=== PATIENT | female | born 1985 | race American Indian/Alaskan Native ===

== ENCOUNTER 2018-08-05 22:30 | Emergency (ER) | payer MEDICAID ==
--- NOTE | 2018-08-05 22:45 | Emergency Department Report ---
Chief Complaint: Eye Problems Stated Complaint: EYE PAIN Time Seen by Provider: 08/05/18 22:44 - HPI History of Present Illness: eye irritation bilateral no life threat mse completed - Exam Vital Signs: Vital Signs 08/05/18 22:38 Temperature 97.8 F Pulse Rate 74 Respiratory 18 Rate Blood Pressure 107/67 O2 Sat by Pulse 94 Oximetry MSE screening note: Focused history and physical exam performed. Due to findings the following was ordered: ED Disposition for MSE Condition: Stable
[2018-08-05 22:57] VITALS: BP 107/67
[2018-08-06] MEDS ORDERED: AUGMENTIN 875 MG PO ONE (00:58)
[2018-08-06] MEDS ORDERED: NORCO 5/325 PO STA (00:58)
--- NOTE | 2018-08-06 01:11 | Emergency Department Report ---
ED Eye Problem HPI - General Chief complaint: Eye Problems Stated complaint: EYE PAIN Time Seen by Provider: 08/05/18 22:44 Source: patient Mode of arrival: Ambulatory Limitations: No Limitations - History of Present Illness Initial comments: 32-year-old [place] female to emergency Department complaining of severe eye pain and redness with discharge. It was preceded by sinus congestion and sinus pressure. He was having yellowish drainage from her eyes of some irritation with blinking. No nausea, vomiting, chest pain, palpitations, fever, chills, sweats. No hemoptysis, hematemesis, no hematochezia. chief complaint: eye pain, eye redness -: days(s) (2) Location: both eyes Place: home If Injury: none Eye Symptoms: redness, pain, itching, discharge Severity: moderate Consistency: constant Associated Symptoms: none Treatments Prior to Arrival: none - Related Data Previous Rx's Medication Instructions Recorded Last Taken Type Amoxicillin/Potassium Clav 1 each PO BID #20 tablet 08/06/18 Unknown Rx [Augmentin 875-125 Tablet] Tobramycin 0.3% [Tobrex] 1 applicatio OU Q8HR #1 tube 08/06/18 Unknown Rx Allergies Allergy/AdvReac Type Severity Reaction Status Date / Time No Known Allergies Allergy Verified 08/05/18 22:36 ED Review of Systems ROS: Stated complaint: EYE PAIN Other details as noted in HPI Constitutional: denies: chills, fever Eyes: denies: eye pain, eye discharge, vision change ENT: denies: ear pain, throat pain Respiratory: cough, shortness of breath, wheezing Cardiovascular: denies: chest pain, palpitations Endocrine: no symptoms reported. denies: excessive sweating, flushing, intol erance to cold, increased hunger, increased thirst, increased urine Gastrointestinal: denies: abdominal pain, nausea, diarrhea Genitourinary: denies: urgency, dysuria, discharge Musculoskeletal: denies: back pain, joint swelling, arthralgia Skin: denies: rash, lesions Neurological: denies: headache, weakness, paresthesias Psychiatric: denies: anxiety, depression Hematological/Lymphatic: denies: easy bleeding, easy bruising ED Past Medical Hx - Past Medical History Previous Medical History?: No - Surgical History Past Surgical History?: Yes Additional Surgical History: tonsil - Social History Smoking Status: Never Smoker Substance Use Type: None - Medications Home Medications: Home Medications Medication Instructions Recorded Confirmed Last Taken Type Amoxicillin/Potassium Clav 1 each PO BID #20 tablet 08/06/18 Unknown Rx [Augmentin 875-125 Tablet] Tobramycin 0.3% [Tobrex] 1 applicatio OU Q8HR #1 tube 08/06/18 Unknown Rx ED Physical Exam - General Limitations: No Limitations General appearance: alert, in no apparent distress - Head Head exam: Present: atraumatic, normocephalic - Eye Eye exam: Present: normal appearance, PERRL, EOMI Pupils: Present: normal accommodation - ENT ENT exam: Present: normal exam, mucous membranes moist, other (nasal congestion bilaterally, right greater than left with some yellow nasal discharge). Absent: TM's normal bilaterally, normal external ear exam - Neck Neck exam: Present: normal inspection, full ROM - Respiratory Respiratory exam: Present: normal lung sounds bilaterally. Absent: respiratory distress, wheezes, rales - Cardiovascular Cardiovascular Exam: Present: regular rate, normal rhythm. Absent: systolic murmur, diastolic murmur, rubs, gallop - GI/Abdominal GI/Abdominal exam: Present: soft, normal bowel sounds - Extremities Exam Extremities exam: Present: normal inspection - Back Exam Back exam: Present: normal inspection - Neurological Exam Neurological exam: Present: alert, oriented X3 - Psychiatric Psychiatric exam: Present: normal affect, normal mood - Skin Skin exam: Present: warm, dry, intact, normal color. Absent: rash ED Course Vital Signs 08/05/18 22:38 Temperature 97.8 F Pulse Rate 74 Respiratory 18 Rate Blood Pressure 107/67 O2 Sat by Pulse 94 Oximetry Critical care attestation.: If time is entered above; I have spent that time in minutes in the direct care of this critically ill patient, excluding procedure time. ED Disposition Clinical Impression: Conjunctivitis, Sinus of skin, infected Disposition: DC-01 TO HOME OR SELFCARE Is pt being admited?: No Does the pt Need Aspirin: No Condition: Stable Instructions: Conjunctivitis (ED) Prescriptions: Amoxicillin/Potassium Clav [Augmentin 875-125 Tablet] 1 each PO BID #20 tablet Tobramycin 0.3% [Tobrex] 1 applicatio OU Q8HR #1 tube Referrals: ENOC BUSTAMANTE MD [Primary Care Provider] - 3-5 Days
== END 2018-08-06 01:42 | disposition home or self-care (01) ==
LOC: ED 22:30
DX: H10.9 Unspecified conjunctivitis (principal); L98.8 Other specified disorders of the skin and subcutaneous tissue; Z90.89 Acquired absence of other organs
CPT/HCPCS: 99283